=== PATIENT | male | born 1990 | race Caucasian/White ===

== ENCOUNTER 2018-10-17 21:49 | Emergency (ER) | payer OTHER ==
[2018-10-17] MEDS: CYCLOBENZAPRINE 10 MG TAB PO (22:48)
[2018-10-17] MEDS: KETOROLAC 30 MG INJ IM (22:48)
== END 2018-10-18 00:10 | disposition home or self-care (01) ==
LOC: FTE 10-18 00:10
DX: S29.012A Strain of muscle and tendon of back wall of thorax, initial encounter (principal); X50.0XXA Overexertion from strenuous movement or load, initial encounter; Y92.9 Unspecified place or not applicable
CPT/HCPCS: 72072; 96372; 99284-25